=== PATIENT | female | born 1975 | race Caucasian/White ===

== ENCOUNTER 2024-04-08 19:10 | Inpatient (IN) | payer OTHER ==
[~2024-04-08] VITALS: Ht 157.5 cm; Wt 52.2 kg
[2024-04-08] MEDS ORDERED: MORPHINE SULFATE 4 MG/ML INJ (FOR IV/IM USE) IV ONE (20:15)
[2024-04-08 20:32] LABS: HCG SCREEN NEGATIVE
[2024-04-08 20:36] LABS: CLARITY URINE CLEAR (CLEAR); COLOR URINE DARK YELLOW (YELLOW); GLUCOSE URINE NEGATIVE (NEGATIVE); KETONES URINE NEGATIVE (NEGATIVE); LEUKOCYTE ESTERASE URINE TRACE (NEGATIVE); NITRITE URINE NEGATIVE (NEGATIVE); OCCULT BLOOD URINE TRACE (NEGATIVE); PH URINE 6.5 (4.5-8.0); PROTEIN URINE 1+ (NEGATIVE)
[2024-04-08 20:41] LABS: BASOPHILS % 0.4 % (0.0-2.0); EOSINOPHILS % 0.3 % (0.0-5.0); HEMATOCRIT. 34.7 % (36.0-48.0); HEMOGLOBIN. 11.8 g/dL (12.0-16.0); LYMPHOCYTES % 7.1 % (20.0-50.0); MEAN CORPUSCULAR HEMOGLOBIN 29.2 pg (28.0-32.0); MEAN CORPUSCULAR HGB CONC 34.1 g/dL (31.0-37.0); MEAN CORPUSCULAR VOLUME 85.5 fL (81.0-99.0); MEAN PLATELET VOLUME 9.1 fl (7.4-10.4); MONOCYTES % 4.4 % (2.0-8.0); NEUTROPHILS % 87.8 % (40.0-76.0); PLATELET 191 x1000/uL (130-400); RED BLOOD CELL COUNT 4.06 mill/uL (4.2-5.4); WHITE BLOOD COUNT 18.3 x1000/uL (4.5-11.0)
[2024-04-08 20:54] LABS: INR 0.9; PROTHROMBIN TIME 10.4 sec (9.6-11.0)
[2024-04-08 20:56] LABS: BACTERIA URINE NONE SEEN; RBC URINE 0-2 /hpf (0-2); SQUAMOUS EPITHELIAL CELL URINE FEW /lpf (RARE/1+)
[2024-04-08] MEDS: MORPHINE SULFATE 4 MG/ML INJ (FOR IV/IM USE) IV NR (21:05)
[2024-04-08 21:07] LABS: CARBON DIOXIDE 18 mEq/L (21-32); CHLORIDE 105 mEq/L (98-107); POTASSIUM 3.6 mEq/L (3.5-5.1); SODIUM 135 mEq/L (136-145)
[2024-04-08 21:08] LABS: CALCIUM 7.5 mg/dL (8.7-10.4)
[2024-04-08] MEDS: SODIUM CHLORIDE 0.9% 1,000 ML IV ONE (21:11)
[2024-04-08 21:12] LABS: CREATININE 0.7 mg/dL (0.6-1.0)
[2024-04-08 21:13] LABS: GLUCOSE 150 mg/dL (70-105); UREA NITROGEN BLOOD 8 mg/dL (9-23)
[2024-04-08 21:14] LABS: ALANINE AMINOTRANSFERASE 54 IU/L (10-49); ALBUMIN 4.1 g/dL (3.2-4.8); ASPARTATE AMINOTRANSFERASE 64 IU/L (<34)
[2024-04-08 21:15] LABS: BILIRUBIN DIRECT 0.2 mg/dL (<=3.0); BILIRUBIN TOTAL 0.6 mg/dL (0.1-1.0); PROTEIN TOTAL 7.4 g/dL (6.0-8.3)
[2024-04-08] MEDS: CEFTRIAXONE 1GM/50ML 50 ML IV ONE (21:21)
[2024-04-08 21:22] LABS: TROPONIN I HIGH SENSITIVITY < 4 ng/L (3.0-34)
[2024-04-09] VITALS (7 sets, daily range): BP systolic 100–121; BP diastolic 61–76; PULSE 83–102; RESP 17–20; TEMP 97.7–99
[2024-04-09] MEDS: MORPHINE SULFATE 2 MG/ML INJ (NOT FOR IM USE) IV PRN (01:36)
[2024-04-09] MEDS: ONDANSETRON HCL 4MG/2ML INJ IV PRN (05:25)
[2024-04-09] MEDS: DEXT 5%/0.45% NACL KCL 20MEQ/L 1,000 ML IV SCH (05:25)
[2024-04-09 06:52] LABS: CHLORIDE 100 mEq/L (98-107); POTASSIUM 3.2 mEq/L (3.5-5.1); SODIUM 128 mEq/L (136-145)
[2024-04-09 09:21] LABS: DIFFERENTIAL COMMENT 1; HEMATOCRIT. 37.1 % (36.0-48.0); MEAN CORPUSCULAR VOLUME 86.3 fL (81.0-99.0); PLATELET 185 x1000/uL (130-400); RED CELL DISTRIBUTION WIDTH 14.9 % (11.6-14.6); WHITE BLOOD COUNT 18.8 x1000/uL (4.5-11.0)
[2024-04-09 09:22] LABS: HEMOGLOBIN. 12.3 g/dL (12.0-16.0); MEAN CORPUSCULAR HEMOGLOBIN 28.6 pg (28.0-32.0); MEAN CORPUSCULAR HGB CONC 33.2 g/dL (31.0-37.0)
[2024-04-09 09:41] LABS: CARBON DIOXIDE 16 mEq/L (21-32)
[2024-04-09 09:46] LABS: CREATININE 0.5 mg/dL (0.6-1.0); GLUCOSE 163 mg/dL (70-105); UREA NITROGEN BLOOD 10 mg/dL (9-23)
[2024-04-09 09:48] LABS: ALANINE AMINOTRANSFERASE 57 IU/L (10-49); ALBUMIN 3.5 g/dL (3.2-4.8); AMYLASE 1324 IU/L (30-118); ASPARTATE AMINOTRANSFERASE 74 IU/L (<34); BILIRUBIN DIRECT 0.3 mg/dL (<=3.0); BILIRUBIN TOTAL 0.7 mg/dL (0.1-1.0); PROTEIN TOTAL 6.5 g/dL (6.0-8.3)
[2024-04-09] MEDS: PANTOPRAZOLE SODIUM 40 MG/VIAL IV SCH (09:59)
[2024-04-09 10:19] LABS: CALCIUM 5.7 mg/dL (8.7-10.4)
[2024-04-09 17:19] LABS: NUCLEATED RED BLOOD CELLS 1 /100 WBC
[2024-04-09 17:20] LABS: PLATELET ESTIMATE NORMAL
[2024-04-09] MEDS ORDERED: NALOXONE HCL 0.4MG/ML VIAL IV PRN (19:45)
[2024-04-09] MEDS: CEFTRIAXONE 1GM/50ML 50 ML IV SCH (21:32)
[2024-04-10] VITALS: BP 109/79; PULSE 100; RESP 20; TEMP 98
[2024-04-10] MEDS: HYDROCODONE/ACETAMINOPHEN 5/325MG TABLET PO PRN (02:56)
[2024-04-10 04:00] VITALS: BP 114/74; PULSE 100; RESP 19; TEMP 98.5
[2024-04-10 08:00] VITALS: BP 110/68; PULSE 99; RESP 18; TEMP 97.7
[2024-04-10] MEDS ORDERED: HYDROMORPHONE HCL/PF 2MG/ML INJ IV PRN ×2 (10:00)
[2024-04-10 12:00] VITALS: BP 107/67; PULSE 102; RESP 19; TEMP 98.1
[2024-04-10] MEDS: MORPHINE SULFATE 2 MG/ML INJ (NOT FOR IM USE) IV PRN (14:00)
[2024-04-10 15:43] LABS: BASOPHILS % 0.4 % (0.0-2.0); DIFFERENTIAL COMMENT 0; EOSINOPHILS % 0.1 % (0.0-5.0); HEMATOCRIT. 35.7 % (36.0-48.0); HEMOGLOBIN. 12.4 g/dL (12.0-16.0); LYMPHOCYTES % 7.3 % (20.0-50.0); MEAN CORPUSCULAR HEMOGLOBIN 30.2 pg (28.0-32.0); MEAN CORPUSCULAR HGB CONC 34.6 g/dL (31.0-37.0); MEAN CORPUSCULAR VOLUME 87.3 fL (81.0-99.0); MEAN PLATELET VOLUME 9.8 fl (7.4-10.4); NEUTROPHILS % 89.2 % (40.0-76.0); PLATELET 147 x1000/uL (130-400); RED BLOOD CELL COUNT 4.09 mill/uL (4.2-5.4); RED CELL DISTRIBUTION WIDTH 15.8 % (11.6-14.6); WHITE BLOOD COUNT 16.8 x1000/uL (4.5-11.0)
[2024-04-10 16:00] VITALS: BP 117/75; PULSE 104; RESP 18; TEMP 97.5
[2024-04-10 16:16] LABS: CHLORIDE 107 mEq/L (98-107); POTASSIUM 3.9 mEq/L (3.5-5.1); SODIUM 132 mEq/L (136-145)
[2024-04-10 16:17] LABS: CARBON DIOXIDE 18 mEq/L (21-32)
[2024-04-10 16:22] LABS: CREATININE 0.4 mg/dL (0.6-1.0); GLUCOSE 121 mg/dL (70-105); UREA NITROGEN BLOOD 10 mg/dL (9-23)
[2024-04-10 16:28] LABS: CALCIUM 5.4 mg/dL (8.7-10.4)
[2024-04-10] MEDS: KETOROLAC 30MG/ML VIAL IV PRN (18:51)
[2024-04-10 20:00] VITALS: BP 121/58; PULSE 55; RESP 18; TEMP 98.6
[2024-04-11] VITALS: BP 120/65; PULSE 55; RESP 18; TEMP 98.5
[2024-04-11 04:00] VITALS: BP 110/68; PULSE 68; RESP 18; TEMP 98.5
[2024-04-11 06:55] LABS: BASOPHILS % 0.2 % (0.0-2.0); EOSINOPHILS % 0.3 % (0.0-5.0); HEMATOCRIT. 29.3 % (36.0-48.0); HEMOGLOBIN. 9.7 g/dL (12.0-16.0); MEAN CORPUSCULAR HGB CONC 33.2 g/dL (31.0-37.0); MEAN CORPUSCULAR VOLUME 87.5 fL (81.0-99.0); MEAN PLATELET VOLUME 10.1 fl (7.4-10.4); MONOCYTES % 3.7 % (2.0-8.0); NEUTROPHILS % 85.8 % (40.0-76.0); PLATELET 122 x1000/uL (130-400); RED BLOOD CELL COUNT 3.35 mill/uL (4.2-5.4); RED CELL DISTRIBUTION WIDTH 15.6 % (11.6-14.6); WHITE BLOOD COUNT 11.1 x1000/uL (4.5-11.0)
[2024-04-11 07:15] LABS: CARBON DIOXIDE 22 mEq/L (21-32); CHLORIDE 104 mEq/L (98-107); POTASSIUM 3.9 mEq/L (3.5-5.1); SODIUM 131 mEq/L (136-145)
[2024-04-11 07:21] LABS: CREATININE 0.4 mg/dL (0.6-1.0); GLUCOSE 129 mg/dL (70-105)
[2024-04-11 07:22] LABS: UREA NITROGEN BLOOD 9 mg/dL (9-23)
[2024-04-11 07:57] LABS: CALCIUM 5.6 mg/dL (8.7-10.4)
[2024-04-11 08:00] VITALS: BP 111/65; PULSE 80; RESP 18; TEMP 98.6
[2024-04-11 12:00] VITALS: BP 115/57; PULSE 103; RESP 18; TEMP 99.3
[2024-04-11] MEDS: CALCIUM GLUCONATE 1GM PREMIX 50 ML IV NR (12:15)
[2024-04-11] MEDS ORDERED: NALOXONE HCL 0.4MG/ML VIAL IV PRN (13:15)
[2024-04-11 16:00] VITALS: BP 111/58; PULSE 102; RESP 18; TEMP 99
[2024-04-11] MEDS: AZITHROMYCIN 250 MG in DEXT 5% WATER 250 ML IV SCH (17:33)
[2024-04-11] MEDS: MORPHINE SULFATE 2 MG/ML INJ (NOT FOR IM USE) IV PRN (17:43)
[2024-04-11] MEDS: HYDROCODONE/ACETAMINOPHEN 10/325MG TABLET PO PRN (20:58)
[2024-04-12] VITALS: BP 126/62; PULSE 105; RESP 17; TEMP 97.7
[2024-04-12 04:00] VITALS: BP 99/64; PULSE 110; RESP 18; TEMP 98.6
[2024-04-12 05:23] LABS: BASOPHILS % 0.3 % (0.0-2.0); EOSINOPHILS % 0.8 % (0.0-5.0); HEMATOCRIT. 24.5 % (36.0-48.0); HEMOGLOBIN. 8.3 g/dL (12.0-16.0); LYMPHOCYTES % 10.5 % (20.0-50.0); MEAN CORPUSCULAR HEMOGLOBIN 29.5 pg (28.0-32.0); MEAN CORPUSCULAR HGB CONC 33.7 g/dL (31.0-37.0); MEAN CORPUSCULAR VOLUME 87.4 fL (81.0-99.0); MEAN PLATELET VOLUME 9.3 fl (7.4-10.4); MONOCYTES % 4.6 % (2.0-8.0); NEUTROPHILS % 83.8 % (40.0-76.0); PLATELET 138 x1000/uL (130-400); RED BLOOD CELL COUNT 2.81 mill/uL (4.2-5.4); RED CELL DISTRIBUTION WIDTH 16.1 % (11.6-14.6); WHITE BLOOD COUNT 9.3 x1000/uL (4.5-11.0)
[2024-04-12 05:35] LABS: CARBON DIOXIDE 26 mEq/L (21-32); CHLORIDE 102 mEq/L (98-107); POTASSIUM 3.9 mEq/L (3.5-5.1); SODIUM 131 mEq/L (136-145)
[2024-04-12 05:36] LABS: CALCIUM 6.6 mg/dL (8.7-10.4)
[2024-04-12 05:41] LABS: CREATININE 0.4 mg/dL (0.6-1.0); GLUCOSE 134 mg/dL (70-105); UREA NITROGEN BLOOD 8 mg/dL (9-23)
[2024-04-12 08:00] VITALS: BP 101/55; PULSE 111; RESP 19; TEMP 98.8
[2024-04-12] MEDS: FAMOTIDINE 20MG/2ML VIAL IV SCH (11:46)
[2024-04-12 12:00] VITALS: BP 104/62; PULSE 106; RESP 17; TEMP 98.6
[2024-04-12 13:22] LABS: IRON 23 ug/dL (50-170)
[2024-04-12 13:24] LABS: TOTAL IRON BINDING CAPACITY 599 ug/dl (250-425)
[2024-04-12] MEDS: CALCIUM GLUCONATE 1GM PREMIX 50 ML IV NR (15:16)
[2024-04-12 16:00] VITALS: BP 119/64; PULSE 123; RESP 18; TEMP 102.2
[2024-04-12 20:00] VITALS: BP 106/56; PULSE 89; RESP 18; TEMP 97.8
[2024-04-13] VITALS (7 sets, daily range): BP systolic 111–131; BP diastolic 59–79; PULSE 62–127; RESP 18–20; TEMP 97.4–103.1; O2SAT 98
[2024-04-13 06:29] LABS: MEAN CORPUSCULAR HEMOGLOBIN 29.4 pg (28.0-32.0); MEAN CORPUSCULAR HGB CONC 32.9 g/dL (31.0-37.0); MEAN CORPUSCULAR VOLUME 89.2 fL (81.0-99.0); MEAN PLATELET VOLUME 8.5 fl (7.4-10.4); PLATELET 164 x1000/uL (130-400); RED BLOOD CELL COUNT 2.34 mill/uL (4.2-5.4); RED CELL DISTRIBUTION WIDTH 16.2 % (11.6-14.6); WHITE BLOOD COUNT 10.7 x1000/uL (4.5-11.0)
[2024-04-13 06:33] LABS: CARBON DIOXIDE 25 mEq/L (21-32); CHLORIDE 99 mEq/L (98-107); POTASSIUM 5.2 mEq/L (3.5-5.1); SODIUM 126 mEq/L (136-145)
[2024-04-13 06:34] LABS: CALCIUM 6.5 mg/dL (8.7-10.4)
[2024-04-13 06:38] LABS: CREATININE 0.5 mg/dL (0.6-1.0)
[2024-04-13 06:39] LABS: BILIRUBIN TOTAL 1.7 mg/dL (0.1-1.0); TRIGLYCERIDE 521 mg/dL (0-150); UREA NITROGEN BLOOD 6 mg/dL (9-23)
[2024-04-13 06:40] LABS: ALANINE AMINOTRANSFERASE 30 IU/L (10-49); ALBUMIN 2.5 g/dL (3.2-4.8); AMYLASE 62 IU/L (30-118); ASPARTATE AMINOTRANSFERASE 35 IU/L (<34); LACTATE DEHYDROGENASE > 750 IU/L (120-246)
[2024-04-13 06:41] LABS: PHOSPHORUS 1.5 mg/dL (2.5-4.9); PROTEIN TOTAL 4.8 g/dL (6.0-8.3)
[2024-04-13 07:15] LABS: INR 1.1
[2024-04-13 07:40] LABS: PREALBUMIN < 5.0 mg/dl (10.0-40.0)
[2024-04-13 07:42] LABS: GLUCOSE 459 mg/dL (70-105)
[2024-04-13 08:22] LABS: DIFFERENTIAL COMMENT 1
[2024-04-13 08:25] LABS: HEMOGLOBIN. 6.9 g/dL (12.0-16.0)
[2024-04-13 08:26] LABS: HEMATOCRIT. 20.9 % (36.0-48.0)
[2024-04-13] MEDS: LACTATED RINGERS 1,000 ML IV SCH (13:26)
[2024-04-13 14:29] LABS: BG BASE EXCESS 3.1 mmol/L (-2.0-2.0); BG CARBOXYHEMOGLOBIN 1.1 % (0.5-1.5); BG DEOXYHEMOGLOBIN 1.5 % (0.0-5.0); BG FRACTION INSPIRED OXYGEN 28; BG HCO3 ACT 26.8 mmol/L (22.0-26.0); BG METHEMOGLOBIN 0.5 % (0.0-1.5); BG OXYGEN SATURATION 98.5 % (92.0-98.5); BG OXYHEMOGLOBIN 96.9 % (94.0-97.0); BG PCO2 37.4 mmHg (35.0-45.0); BG PH 7.473 (7.350-7.450); BG SAMPLE SITE RIGHT RADIAL; BG TOTAL HEMOGLOBIN 9.8 g/dL (12.0-18.0); BG VENT MODE NASAL CANNULA
[2024-04-13] MEDS: MEROPENEM 1G/100ML 100 ML IV SCH (14:46)
[2024-04-13 16:20] LABS: CHLORIDE 97 mEq/L (98-107); POTASSIUM 3.9 mEq/L (3.5-5.1); SODIUM 130 mEq/L (136-145)
[2024-04-13 16:21] LABS: CARBON DIOXIDE 26 mEq/L (21-32)
[2024-04-13 16:22] LABS: CALCIUM 7.4 mg/dL (8.7-10.4)
[2024-04-13 16:26] LABS: CREATININE 0.4 mg/dL (0.6-1.0); GLUCOSE 113 mg/dL (70-105); UREA NITROGEN BLOOD 6 mg/dL (9-23)
[2024-04-13 18:20] LABS: PLATELET ESTIMATE NORMAL
[2024-04-13] MEDS: SODIUM PHOSPHATE 20 MMOL in DEXT 5% WATER 243.3333 ML IV NR (19:05)
[2024-04-13] MEDS: IPRATROPIUM BROMIDE (0.02%) 0.5MG/2.5ML NEB HHN SCH (21:46)
[2024-04-14] VITALS (10 sets, daily range): BP systolic 95–115; BP diastolic 50–69; PULSE 71–119; RESP 18–22; TEMP 97.6–104.5; O2SAT 95–98
[2024-04-14] MEDS: ACETAMINOPHEN 650MG/20.3ML UDC PO PRN (07:18)
[2024-04-14 07:20] LABS: BASOPHILS % 0.2 % (0.0-2.0); DIFFERENTIAL COMMENT 0; EOSINOPHILS % 0.5 % (0.0-5.0); LYMPHOCYTES % 7.3 % (20.0-50.0); MEAN CORPUSCULAR HEMOGLOBIN 28.5 pg (28.0-32.0); MEAN CORPUSCULAR HGB CONC 32.7 g/dL (31.0-37.0); MEAN CORPUSCULAR VOLUME 87.1 fL (81.0-99.0); MEAN PLATELET VOLUME 8.4 fl (7.4-10.4); MONOCYTES % 7.8 % (2.0-8.0); NEUTROPHILS % 84.2 % (40.0-76.0); PLATELET 256 x1000/uL (130-400); RED CELL DISTRIBUTION WIDTH 15.7 % (11.6-14.6); WHITE BLOOD COUNT 18.2 x1000/uL (4.5-11.0)
[2024-04-14 07:23] LABS: CHLORIDE 97 mEq/L (98-107); POTASSIUM 3.7 mEq/L (3.5-5.1); SODIUM 129 mEq/L (136-145)
[2024-04-14 07:26] LABS: CALCIUM 7.7 mg/dL (8.7-10.4); CARBON DIOXIDE 26 mEq/L (21-32)
[2024-04-14 07:28] LABS: HEMATOCRIT. 24.4 % (36.0-48.0)
[2024-04-14 07:31] LABS: CREATININE 0.4 mg/dL (0.6-1.0); GLUCOSE 117 mg/dL (70-105); TRIGLYCERIDE 581 mg/dL (0-150); UREA NITROGEN BLOOD 5 mg/dL (9-23)
[2024-04-14 07:32] LABS: ALANINE AMINOTRANSFERASE 27 IU/L (10-49)
[2024-04-14 07:33] LABS: ASPARTATE AMINOTRANSFERASE 29 IU/L (<34); BILIRUBIN DIRECT 0.9 mg/dL (<=3.0); BILIRUBIN TOTAL 1.7 mg/dL (0.1-1.0); PROTEIN TOTAL 5.6 g/dL (6.0-8.3)
[2024-04-14] MEDS ORDERED: MULT-1318 PO (12:43)
[2024-04-14] MEDS: SODIUM CHLORIDE 0.9% 1,000 ML IV SCH (16:11)
[2024-04-14] MEDS: LACTOBACILLUS GG CAPSULE PO SCH (20:37)
[2024-04-15] VITALS (10 sets, daily range): BP systolic 105–124; BP diastolic 61–71; PULSE 58–125; RESP 16–22; TEMP 97.6–102.4; O2SAT 94–95
[2024-04-15 08:11] LABS: HEMATOCRIT. 22.1 % (36.0-48.0); HEMOGLOBIN. 7.3 g/dL (12.0-16.0); MEAN CORPUSCULAR VOLUME 87.8 fL (81.0-99.0); MEAN PLATELET VOLUME 8.1 fl (7.4-10.4); PLATELET 283 x1000/uL (130-400); RED BLOOD CELL COUNT 2.52 mill/uL (4.2-5.4); RED CELL DISTRIBUTION WIDTH 15.8 % (11.6-14.6); WHITE BLOOD COUNT 18.6 x1000/uL (4.5-11.0)
[2024-04-15 08:14] LABS: CARBON DIOXIDE 27 mEq/L (21-32); CHLORIDE 102 mEq/L (98-107); POTASSIUM 3.3 mEq/L (3.5-5.1); SODIUM 134 mEq/L (136-145)
[2024-04-15 08:15] LABS: CALCIUM 7.5 mg/dL (8.7-10.4)
[2024-04-15 08:17] LABS: DIFFERENTIAL COMMENT 1
[2024-04-15 08:20] LABS: CREATININE 0.4 mg/dL (0.6-1.0); GLUCOSE 103 mg/dL (70-105); UREA NITROGEN BLOOD 9 mg/dL (9-23)
[2024-04-15 08:21] LABS: ALBUMIN 2.9 g/dL (3.2-4.8)
[2024-04-15 08:22] LABS: ASPARTATE AMINOTRANSFERASE 26 IU/L (<34); PROTEIN TOTAL 5.5 g/dL (6.0-8.3)
[2024-04-15 08:25] LABS: ALANINE AMINOTRANSFERASE 25 IU/L (10-49)
[2024-04-15] MEDS: POTASSIUM CHLORIDE 20MEQ/PACKET PO NR (09:38)
[2024-04-15 17:25] LABS: ANISOCYTOSIS 1+; NUCLEATED RED BLOOD CELLS 2 /100 WBC; PLATELET ESTIMATE NORMAL
[2024-04-15 18:54] LABS: HEMATOCRIT 23.9 % (36.0-48.0); HEMOGLOBIN 7.8 g/dL (12.0-16.0)
[2024-04-16] VITALS (7 sets, daily range): BP systolic 102–116; BP diastolic 50–68; PULSE 96–122; RESP 14–22; TEMP 98.5–101.3; O2SAT 99
[2024-04-16 07:21] LABS: CHLORIDE 103 mEq/L (98-107); POTASSIUM 3.4 mEq/L (3.5-5.1); SODIUM 135 mEq/L (136-145)
[2024-04-16 07:22] LABS: CALCIUM 7.7 mg/dL (8.7-10.4); CARBON DIOXIDE 25 mEq/L (21-32)
[2024-04-16 07:27] LABS: CREATININE 0.4 mg/dL (0.6-1.0); GLUCOSE 116 mg/dL (70-105); HEMATOCRIT. 22.7 % (36.0-48.0); HEMOGLOBIN. 7.5 g/dL (12.0-16.0); MEAN CORPUSCULAR HEMOGLOBIN 28.9 pg (28.0-32.0); MEAN CORPUSCULAR HGB CONC 33.1 g/dL (31.0-37.0); MEAN CORPUSCULAR VOLUME 87.3 fL (81.0-99.0); PLATELET 355 x1000/uL (130-400); RED CELL DISTRIBUTION WIDTH 15.6 % (11.6-14.6); UREA NITROGEN BLOOD 9 mg/dL (9-23); WHITE BLOOD COUNT 21.1 x1000/uL (4.5-11.0)
[2024-04-16 07:29] LABS: ALANINE AMINOTRANSFERASE 22 IU/L (10-49); ALBUMIN 2.7 g/dL (3.2-4.8); ASPARTATE AMINOTRANSFERASE 24 IU/L (<34); BILIRUBIN TOTAL 0.8 mg/dL (0.1-1.0); PROTEIN TOTAL 5.3 g/dL (6.0-8.3)
[2024-04-16 07:35] LABS: DIFFERENTIAL COMMENT 1
[2024-04-16] MEDS: POTASSIUM CHLORIDE 20MEQ TABLET SR PO NR (10:54)
[2024-04-16 20:15] LABS: PLATELET ESTIMATE NORMAL
[2024-04-17] VITALS (11 sets, daily range): BP systolic 102–121; BP diastolic 3–96; PULSE 67–114; RESP 14–20; TEMP 97.6–99.3
[2024-04-17 04:29] LABS: HEMATOCRIT. 21.5 % (36.0-48.0); MEAN CORPUSCULAR HEMOGLOBIN 28.2 pg (28.0-32.0); MEAN CORPUSCULAR HGB CONC 32.2 g/dL (31.0-37.0); MEAN CORPUSCULAR VOLUME 87.6 fL (81.0-99.0); MEAN PLATELET VOLUME 7.4 fl (7.4-10.4); PLATELET 364 x1000/uL (130-400); RED BLOOD CELL COUNT 2.46 mill/uL (4.2-5.4); RED CELL DISTRIBUTION WIDTH 15.7 % (11.6-14.6); WHITE BLOOD COUNT 21.1 x1000/uL (4.5-11.0)
[2024-04-17 04:34] LABS: DIFFERENTIAL COMMENT 1
[2024-04-17 04:36] LABS: HEMOGLOBIN. 6.9 g/dL (12.0-16.0)
[2024-04-17 04:39] LABS: CHLORIDE 102 mEq/L (98-107); POTASSIUM 3.6 mEq/L (3.5-5.1); SODIUM 133 mEq/L (136-145)
[2024-04-17 04:40] LABS: CALCIUM 7.6 mg/dL (8.7-10.4); CARBON DIOXIDE 24 mEq/L (21-32)
[2024-04-17 04:45] LABS: CREATININE 0.3 mg/dL (0.6-1.0); GLUCOSE 110 mg/dL (70-105); UREA NITROGEN BLOOD 10 mg/dL (9-23)
[2024-04-17 04:47] LABS: ALANINE AMINOTRANSFERASE 23 IU/L (10-49); ALBUMIN 2.9 g/dL (3.2-4.8); ASPARTATE AMINOTRANSFERASE 32 IU/L (<34); BILIRUBIN TOTAL 0.8 mg/dL (0.1-1.0); PROTEIN TOTAL 5.5 g/dL (6.0-8.3)
[2024-04-17 06:44] LABS: ANISOCYTOSIS 1+; PLATELET ESTIMATE NORMAL
[2024-04-17 11:43] LABS: HEMATOCRIT 27.3 % (36.0-48.0); HEMOGLOBIN 9.1 g/dL (12.0-16.0)
[2024-04-18] VITALS (8 sets, daily range): BP systolic 100–105; BP diastolic 58–68; PULSE 75–105; RESP 18–20; TEMP 97.7–101; O2SAT 96
[2024-04-18 06:48] LABS: HEMATOCRIT. 24.3 % (36.0-48.0); MEAN CORPUSCULAR HEMOGLOBIN 27.2 pg (28.0-32.0); MEAN CORPUSCULAR HGB CONC 32.8 g/dL (31.0-37.0); MEAN CORPUSCULAR VOLUME 82.9 fL (81.0-99.0); PLATELET 388 x1000/uL (130-400); RED BLOOD CELL COUNT 2.92 mill/uL (4.2-5.4); RED CELL DISTRIBUTION WIDTH 19.2 % (11.6-14.6); WHITE BLOOD COUNT 18.1 x1000/uL (4.5-11.0)
[2024-04-18 06:58] LABS: DIFFERENTIAL COMMENT 1
[2024-04-18 07:00] LABS: CHLORIDE 100 mEq/L (98-107); POTASSIUM 3.9 mEq/L (3.5-5.1); SODIUM 131 mEq/L (136-145)
[2024-04-18 07:01] LABS: CARBON DIOXIDE 24 mEq/L (21-32)
[2024-04-18 07:06] LABS: ALANINE AMINOTRANSFERASE 41 IU/L (10-49); GLUCOSE 112 mg/dL (70-105); UREA NITROGEN BLOOD 7 mg/dL (9-23)
[2024-04-18 07:08] LABS: ASPARTATE AMINOTRANSFERASE 53 IU/L (<34); BILIRUBIN TOTAL 1.3 mg/dL (0.1-1.0)
[2024-04-18 07:09] LABS: PROTEIN TOTAL 5.8 g/dL (6.0-8.3)
[2024-04-18 08:05] LABS: CREATININE 0.4 mg/dL (0.6-1.0)
[2024-04-18 14:33] LABS: ANISOCYTOSIS 2+; NUCLEATED RED BLOOD CELLS 1 /100 WBC; PLATELET ESTIMATE NORMAL
[2024-04-19] VITALS: BP 102/54; PULSE 92; RESP 18; TEMP 99
[2024-04-19 07:33] LABS: CARBON DIOXIDE 25 mEq/L (21-32); CHLORIDE 99 mEq/L (98-107); POTASSIUM 4.3 mEq/L (3.5-5.1); SODIUM 131 mEq/L (136-145)
[2024-04-19 07:39] LABS: CREATININE 0.4 mg/dL (0.6-1.0); GLUCOSE 108 mg/dL (70-105); UREA NITROGEN BLOOD 10 mg/dL (9-23)
[2024-04-19 07:41] LABS: HEMATOCRIT. 27.1 % (36.0-48.0); HEMOGLOBIN. 8.9 g/dL (12.0-16.0); MEAN CORPUSCULAR HEMOGLOBIN 27.2 pg (28.0-32.0); MEAN CORPUSCULAR HGB CONC 32.9 g/dL (31.0-37.0); MEAN CORPUSCULAR VOLUME 82.7 fL (81.0-99.0); MEAN PLATELET VOLUME 7.7 fl (7.4-10.4); PLATELET 494 x1000/uL (130-400); RED BLOOD CELL COUNT 3.28 mill/uL (4.2-5.4); RED CELL DISTRIBUTION WIDTH 19.6 % (11.6-14.6); WHITE BLOOD COUNT 16.3 x1000/uL (4.5-11.0)
[2024-04-19 08:00] VITALS: BP 105/60; PULSE 94; RESP 20; TEMP 98.9
[2024-04-19 08:06] LABS: DIFFERENTIAL COMMENT 1
[2024-04-19 12:00] VITALS: BP 105/64; PULSE 103; RESP 18; TEMP 102
[2024-04-19 12:28] LABS: ANISOCYTOSIS 1+; PLATELET ESTIMATE INCREASED
[2024-04-19 16:00] VITALS: BP 104/64; PULSE 89; RESP 17; TEMP 97.7
[2024-04-20] VITALS: BP 108/63; PULSE 110; RESP 20; TEMP 100.8
[2024-04-20 04:00] VITALS: BP 105/69; PULSE 88; RESP 18; TEMP 98.2
[2024-04-20 05:22] LABS: CHLORIDE 99 mEq/L (98-107); POTASSIUM 3.9 mEq/L (3.5-5.1); SODIUM 131 mEq/L (136-145)
[2024-04-20 05:24] LABS: CALCIUM 8.2 mg/dL (8.7-10.4); CARBON DIOXIDE 25 mEq/L (21-32)
[2024-04-20 05:29] LABS: CREATININE 0.4 mg/dL (0.6-1.0); GLUCOSE 116 mg/dL (70-105); UREA NITROGEN BLOOD 9 mg/dL (9-23)
[2024-04-20 05:31] LABS: ALANINE AMINOTRANSFERASE 106 IU/L (10-49); ALBUMIN 3.1 g/dL (3.2-4.8); ASPARTATE AMINOTRANSFERASE 98 IU/L (<34); BILIRUBIN DIRECT 0.6 mg/dL (<=3.0); BILIRUBIN TOTAL 1.2 mg/dL (0.1-1.0); PROTEIN TOTAL 6.6 g/dL (6.0-8.3)
[2024-04-20 06:05] LABS: BASOPHILS % 0.3 % (0.0-2.0); EOSINOPHILS % 0.4 % (0.0-5.0); HEMATOCRIT. 26.3 % (36.0-48.0); HEMOGLOBIN. 8.6 g/dL (12.0-16.0); LYMPHOCYTES % 9.1 % (20.0-50.0); MEAN CORPUSCULAR HEMOGLOBIN 27.2 pg (28.0-32.0); MEAN CORPUSCULAR HGB CONC 32.9 g/dL (31.0-37.0); MEAN CORPUSCULAR VOLUME 82.9 fL (81.0-99.0); MEAN PLATELET VOLUME 7.6 fl (7.4-10.4); MONOCYTES % 7.9 % (2.0-8.0); NEUTROPHILS % 82.3 % (40.0-76.0); PLATELET 558 x1000/uL (130-400); RED BLOOD CELL COUNT 3.17 mill/uL (4.2-5.4); RED CELL DISTRIBUTION WIDTH 18.5 % (11.6-14.6); WHITE BLOOD COUNT 14.4 x1000/uL (4.5-11.0)
[2024-04-20 08:00] VITALS: BP 101/67; PULSE 103; RESP 20; TEMP 98.8
[2024-04-20 12:00] VITALS: BP 101/65; PULSE 116; RESP 22; TEMP 98
[2024-04-20 16:00] VITALS: BP 107/64; PULSE 108; RESP 18; TEMP 98.3
[2024-04-20 20:00] VITALS: BP 106/60; PULSE 109; RESP 20; TEMP 98.4
[2024-04-21] VITALS: BP 130/60; PULSE 98; RESP 20; TEMP 98.2
[2024-04-21 04:00] VITALS: BP 102/60; PULSE 101; RESP 20; TEMP 97.8
[2024-04-21 07:04] LABS: BASOPHILS % 0.3 % (0.0-2.0); EOSINOPHILS % 0.4 % (0.0-5.0); HEMATOCRIT. 27.2 % (36.0-48.0); HEMOGLOBIN. 8.8 g/dL (12.0-16.0); LYMPHOCYTES % 9.3 % (20.0-50.0); MEAN CORPUSCULAR HEMOGLOBIN 26.9 pg (28.0-32.0); MEAN CORPUSCULAR HGB CONC 32.4 g/dL (31.0-37.0); MEAN CORPUSCULAR VOLUME 83.1 fL (81.0-99.0); MEAN PLATELET VOLUME 7.5 fl (7.4-10.4); MONOCYTES % 8.9 % (2.0-8.0); NEUTROPHILS % 81.1 % (40.0-76.0); PLATELET 649 x1000/uL (130-400); RED BLOOD CELL COUNT 3.27 mill/uL (4.2-5.4); RED CELL DISTRIBUTION WIDTH 18.4 % (11.6-14.6); WHITE BLOOD COUNT 13.4 x1000/uL (4.5-11.0)
[2024-04-21 07:06] LABS: CHLORIDE 97 mEq/L (98-107); POTASSIUM 4.1 mEq/L (3.5-5.1); SODIUM 130 mEq/L (136-145)
[2024-04-21 07:09] LABS: CALCIUM 8.3 mg/dL (8.7-10.4); CARBON DIOXIDE 26 mEq/L (21-32)
[2024-04-21 07:14] LABS: CREATININE 0.4 mg/dL (0.6-1.0); GLUCOSE 120 mg/dL (70-105); UREA NITROGEN BLOOD 12 mg/dL (9-23)
[2024-04-21 07:15] LABS: ALANINE AMINOTRANSFERASE 116 IU/L (10-49)
[2024-04-21 07:16] LABS: ALBUMIN 3.2 g/dL (3.2-4.8); ASPARTATE AMINOTRANSFERASE 98 IU/L (<34); BILIRUBIN DIRECT 0.5 mg/dL (<=3.0); PROTEIN TOTAL 6.6 g/dL (6.0-8.3)
[2024-04-21 08:00] VITALS: BP 102/62; PULSE 109; RESP 18; TEMP 99
[2024-04-21 12:00] VITALS: BP 105/69; PULSE 107; RESP 20; TEMP 98.8
[2024-04-21 16:00] VITALS: BP 107/63; PULSE 107; RESP 20; TEMP 100.6
[2024-04-21 20:00] VITALS: BP 104/154; PULSE 90; RESP 20; TEMP 97.9
[2024-04-22] VITALS: BP 106/68; PULSE 100; RESP 18; TEMP 98.1
[2024-04-22 04:00] VITALS: BP 100/60; PULSE 110; RESP 18; TEMP 98.8
[2024-04-22 08:00] VITALS: BP 112/66; PULSE 100; RESP 16; TEMP 97.9
[2024-04-22 11:51] LABS: BASOPHILS % 0.3 % (0.0-2.0); EOSINOPHILS % 0.5 % (0.0-5.0); HEMATOCRIT. 25.9 % (36.0-48.0); HEMOGLOBIN. 8.8 g/dL (12.0-16.0); LYMPHOCYTES % 10.9 % (20.0-50.0); MEAN CORPUSCULAR HEMOGLOBIN 28.3 pg (28.0-32.0); MEAN CORPUSCULAR VOLUME 83.2 fL (81.0-99.0); MONOCYTES % 8.7 % (2.0-8.0); NEUTROPHILS % 79.6 % (40.0-76.0); PLATELET 628 x1000/uL (130-400); RED BLOOD CELL COUNT 3.12 mill/uL (4.2-5.4); RED CELL DISTRIBUTION WIDTH 18.2 % (11.6-14.6); WHITE BLOOD COUNT 10.9 x1000/uL (4.5-11.0)
[2024-04-22 12:02] LABS: CHLORIDE 98 mEq/L (98-107); POTASSIUM 4.1 mEq/L (3.5-5.1); SODIUM 130 mEq/L (136-145)
[2024-04-22 12:03] LABS: CARBON DIOXIDE 26 mEq/L (21-32)
[2024-04-22 12:04] LABS: CALCIUM 8.1 mg/dL (8.7-10.4)
[2024-04-22 12:08] LABS: CREATININE 0.4 mg/dL (0.6-1.0); GLUCOSE 141 mg/dL (70-105); UREA NITROGEN BLOOD 11 mg/dL (9-23)
== END 2024-04-22 17:45 | disposition left against medical advice (07) | DRG 438 ==
LOC: ER 19:10 → 6EST 21:40 → EDBEDREQTM 21:43 → EDBEDREQ 21:43 → 8WST 04-13 11:50
PROVIDERS: ADMIT Internal Medicine; ATTEND Internal Medicine
PROC: 30233N1 Transfusion of Nonautologous Red Blood Cells into Peripheral Vein, Percutaneous Approach (ICD-10-PCS; principal; 2024-04-17)
DX: K85.10 Biliary acute pancreatitis without necrosis or infection (principal); A41.9 Sepsis, unspecified organism; J18.9 Pneumonia, unspecified organism; J96.00 Acute respiratory failure, unspecified whether with hypoxia or hypercapnia; K80.00 Calculus of gallbladder with acute cholecystitis without obstruction; Z20.822 Contact with and (suspected) exposure to COVID-19; D64.9 Anemia, unspecified; E78.1 Pure hyperglyceridemia; E83.51 Hypocalcemia; Z53.29 Procedure and treatment not carried out because of patient's decision for other reasons; Z79.899 Other long term (current) drug therapy
CPT/HCPCS: 36415; 36600; 71045; 74176; 74181; 76705; 76856; 80048; 80053; 80076; 81003; 82150; 82375; 82728; 82805; 82962; 83540; 83550; 83605; 83615; 83735; 84100; 84134; 84145; 84478; 84484; 84703; 85014; 85018; 85025; 86301; 86304; 86850; 86900; 86920; 87426; 93005; 94640; 99291; C1893; J0456; J0610; J0696; J1885; J2185; J2270; J2405; J2470; J3490; J7030; J7060; J7120; P9016